=== PATIENT | male | born 1990 | race Two or more races ===

== ENCOUNTER 2017-05-25 16:18 | Emergency (ER) | payer MEDICAID, OTHER ==
[2017-05-25] MEDS: IBUPROFEN 800 MG TAB PO (19:39)
== END 2017-05-25 20:38 | disposition home or self-care (01) ==
LOC: FTE 16:18
DX: S20.212A Contusion of left front wall of thorax, initial encounter (principal); F17.210 Nicotine dependence, cigarettes, uncomplicated; X58.XXXA Exposure to other specified factors, initial encounter; Y92.9 Unspecified place or not applicable
CPT/HCPCS: 71045; 71100; 99283-25